=== PATIENT | male | born 1985 | race Caucasian/White ===

== ENCOUNTER 2017-04-02 06:15 | Observation (INO) | payer OTHER ==
[2017-03-25 15:39] VITALS: BMI 29.8
[~2017-04-02 06:15] MED LIST: AMPICILLIN 1,000 MG in SODIUM CHLORIDE 0.9% 50 ML IVPB ONE; GENTAMICIN 160 MG in SODIUM CHLORIDE 0.9% 100 ML IVPB ONE; ONDANSETRON 4 MG/2 ML VIAL IVP PRN
[2017-04-02] MEDS: LACTATED RINGERS 1,000 ML IV SCH ×2 (06:49→21:31)
[2017-04-02] MEDS ORDERED: LIDOCAINE 1% 20 ML VIAL (10MG/ML) FOR IV START INTRADERMA ONE (06:50)
[2017-04-02] MEDS ORDERED: HYDROmorphone (PF) 1 MG/ML ONE (07:23)
[2017-04-02] MEDS ORDERED: PROPOFOL 10 MG/ML 20 ML VIAL IV ONE (07:23)
[2017-04-02] MEDS ORDERED: KETOROLAC 30 MG/ML 1 ML VIAL ONE (07:23)
[2017-04-02] MEDS ORDERED: ROCURONIUM BROMIDE 10 MG/ML 10 ML VIAL IV ONE (07:23)
[2017-04-02] MEDS ORDERED: MIDAZOLAM 2 MG/2 ML VIAL ONE (07:23)
[2017-04-02] MEDS ORDERED: SUCCINYLCHOLINE CHLORIDE 100 MG/5 ML SYR IV ONE (07:23)
[2017-04-02] MEDS ORDERED: fentaNYL (PF) 50 MCG/ML 2 ML AMP ONE (07:23)
[2017-04-02] MEDS ORDERED: LIDOCAINE 1% INJ 10MG/ML (20 ML MDV) ONE (07:23)
--- NOTE | 2017-04-02 07:44 | XR ---
Abdomen HISTORY: Kidney stones Frontal view of the abdomen submitted on [address] scan from outside institution 01/28/2017. Calcification of the upper pole the right kidney measures approximately 11 mm, lower pole calcificati on measures approximately 8 mm, scattered subcentimeter calcifications also present at the lower pole on the right, approximately 6 or 7 calcifications suspected. Ventriculoperitoneal shunt tubing is pr esent in the left abdomen. Lung bases are not included on the exam. There is no evident bowel obstruc tion or pneumoperitoneum. Probable vascular calcifications within the pelvis. IMPRESSION: Right nephrolithiasis.
[2017-04-02] MEDS ORDERED: IOHEXOL 350 MG/ML 50ML BOTTLE MISCELLANE ONE (07:57)
[2017-04-02] MEDS ORDERED: LACTATED RINGERS 1,000 ML IV ONE ×2 (09:21)
[2017-04-02] MEDS ORDERED: MAG HYDROX/AL HYDROX/SIMETH 30 ML CUP PO PRN (10:01)
[2017-04-02] MEDS ORDERED: ONDANSETRON 4 MG/2 ML VIAL IVP PRN (10:01)
[2017-04-02] MEDS ORDERED: ACETAMINOPHEN TAB 325 MG TAB PO PRN (10:01)
[2017-04-02] MEDS ORDERED: NALOXONE 0.4 MG/ML 1 ML VIAL IV PRN (10:02)
[2017-04-02] MEDS ORDERED: HYDROmorphone PCA 5 MG/25 ML SYRINGE IV PRN (10:02)
--- NOTE | 2017-04-02 10:10 | P.OP ---
Date of Procedure: 04/02/17 Preoperative Diagnosis: Right renal calculi, right UPJ obstruction Postoperative Diagnosis: Same Procedure(s) Performed: Cystoscopy, placement of right 5-[place] occluding balloon ureteral catheter, percutaneous nephrostomy (Dr. Lagunas) percutaneous nephrostolithotomy, percutaneous endopyelotomy, placement of 7 x 28 antegrade double-J catheter, placement of 10-[place] J nephrostomy tube Anesthesia: GETA Surgeon: Carlos Olivas Estimated Blood Loss (ml): 50 Pathology: other (Stone) Condition: stable Disposition: PACU Indications for Procedure: The patient is a 31-year-old gentleman with recurrent right flank pain. He has a UPJ obstruction as well as several smaller stones in the right kidney. He comes for a percutaneous nephrostolithotomy and a percutaneous endopyelotomy on the right side. Operative Findings: UPJ obstruction right, 1 cm and 3 to 4, 4-5 mm stones Description of Procedure: The patient is brought to the operating suite and given a successful general endotracheal anesthesia on the transport gurney. He's placed in a frog position with a sterile prep and drape. Cystoscopy with a Foroblique lens and 22-[place] sheath identifies a normal urethra. The prostate is not obstructing. The right ureteral orifice is intubated with a 5-[place] occluding balloon catheter and it is passed up into the UPJ. The patient is placed in a prone position with care to airways and extremities. Dr. Lagunas of radiology performed percutaneous access to the right lower pole calyx as the upper pole calyces are near the pleura. We then dilate the tract to 30-[place]. We introduced the rigid scope into the collecting system and remove clot. The larger stone is seen and grasp and removed. I then remove several smaller stones. I look through the collecting system and basket some small stones. I then through the ureteral catheter pass an 0.25 wire up into the collecting system. The wires grasped and pulled out through the working sheath. Over the wire with some difficulty I began to dilate the UPJ with a 6- [place] open-ended catheter. Over the open-ended catheter I then pass a 6-18- [place] dilating balloon and dilated the tract 18-[place]. I then pass the direct vision urethrotome and in an anterior lateral aspect I cut the stricture over 20-[place]. I then pass the open-ended catheter over the wire and exchanged the 025 wire for an 035 wire and passed down into the bladder. Over the 035 wire pass a 7-28 double-J catheter that coils in the bladder in the renal pelvis. Its positioned confirmed endoscopically and with fluoroscopy . I then place a 10-[place] J nephrostomy tube. Its position is confirmed under fluoroscopy. I tied this to the skin. The patient's awakened and sent to recovery in good condition. Blood loss is approximately 50 mL. Patient will stay in the hospital postoperatively.
[2017-04-02] MEDS: HYDROmorphone 1 MG/ML 1 ML SYRINGE IVP PRN ×4 (10:50→17:56)
--- NOTE | 2017-04-02 11:17 | FL ---
EXAMINATION TYPE: FL Perc Nephrostomy New Access DATE OF EXAM: 04/02/2017 COMPARISON: NONE HISTORY: Ureteropelvic junction obstruction, right-sided renal calculus. PROCEDURE: Maximal barrier technique was utilized. The skin overlying the right kidney was localized using fluo roscopy and the overlying skin prepped and draped. Lidocaine used for local anesthesia. Skin jared w as made with a scalpel. Access was gained under fluoroscopy, following placement of a ureteral occlu tee balloon by the referring clinician and instillation of air in the renal collecting system with a 22-gauge needle to the kidney. A suitable posterior calyx was chosen. A 0.018 inch wire was [id number] flaregames. The access site was dilated and subsequently a sheath was advanced into the renal pelvis follow ing dilation with balloon along the tract. Following advancement of the sheath was noted that access was not obtained into the kidney. Sheath was removed and subsequently reinserted over the safety wire . Wire was passed via the ureteral occlusion balloon and snared within the renal collecting system an d delivered and fixed to the patient. Urine returned in the hub of the catheter. The patient underwen t nephrolithotomy by the referring clinician as well as procedure at the ureteropelvic junction. Th e patient remained in stable condition without complication. The patient was discharged to [facility] on. IMPRESSION: STATUS POST NEPHROSTOMY PLACEMENT FOR NEPHROLITHOTOMY WITH FLUOROSCOPIC GUIDANCE. THIS PROCEDURE PER FORMED BY THE UNDERSIGNED.
[2017-04-02] MEDS: DEXTROSE 5%-0.45% NACL 1,000 ML IV SCH ×2 (11:49→21:40)
[2017-04-02] MEDS: KETOROLAC 30 MG/ML 1 ML VIAL IVP PRN (12:35)
[2017-04-03] MEDS: KETOROLAC 30 MG/ML 1 ML VIAL IVP PRN ×2 (01:56→07:57)
[2017-04-03] MEDS: DEXTROSE 5%-0.45% NACL 1,000 ML IV SCH (06:38)
[2017-04-03 08:15] VITALS: BP 123/79; PULSE 60; RESP 16; TEMP 98.2
--- NOTE | 2017-04-03 12:12 | P.DS ---
Providers Date of admission: 04/03/17 03:39 Attending physician: Carlos Olivas Primary care physician: Stated None Hospital Course: the patient was dmitted 04/02/2017 for a right percutaneous nephrostolithotomy and a right percutaneous endopyelotomy. He underwent this. He was kept in the hospital overnight. His pain was controlled. The catheters removed his voided well. The urine from the nephrostomy tube is clearing. He is feeling well. We discharged home. A follow-up in the office next Friday for nephrostomy tube removal. The stent will remain in place for about 4 weeks. He'll be given as prescription of [place]. Patient Condition at Discharge: Good Plan - Discharge Summary Discharge Rx Participant: Yes New Discharge Prescriptions: New HYDROcodone/APAP 5-325MG [[place] 5-325] 1 tab PO Q4HR PRN #20 tab PRN Reason: Pain Control HYDROcodone/APAP 5-325MG [[place] 5-325] 1 tab PO Q4HR PRN #20 tab PRN Reason: Pain Control Discharge Medication List HYDROcodone/APAP 5-325MG [[place] 5-325] 1 tab PO Q4HR PRN #20 tab 04/02/17 [Rx] HYDROcodone/APAP 5-325MG [[place] 5-325] 1 tab PO Q4HR PRN #20 tab 04/03/17 [Rx] Follow up Appointment(s)/Referral(s): Carlos Olivas MD [STAFF PHYSICIAN] - 04/08/17 Activity/Diet/Wound Care/Special Instructions: discharge home with n tube May shower if he covers the tube or changes the dressing office to see me apr 08 Discharge Disposition: HOME SELF-CARE
== END 2017-04-03 12:28 | disposition home or self-care (01) ==
LOC: OR 06:15 → 4MS4W 10:04 → OR 04-03 03:39 → 4MS4W 04-03 03:39
PROVIDERS: ADMIT Urology; ATTEND Urology
DX: N20.0 Calculus of kidney (principal); N13.5 Crossing vessel and stricture of ureter without hydronephrosis; Z86.011 Personal history of benign neoplasm of the brain; F17.200 Nicotine dependence, unspecified, uncomplicated; Q62.11 Congenital occlusion of ureteropelvic junction
CPT/HCPCS: 50080; 94760; 86900; 86901; 86850; 82365; 74000; 50432; G0378; C2625; C1769 ×6; C2628; C1729 ×2; C1758; C1894; J2250; J2405; J2001; J3010; J1885 ×2; J1580; J1170; J0330; J2704; Q9967

== ENCOUNTER 2017-05-09 14:22 | Emergency (ER) | payer OTHER ==
[2017-05-09 14:29] VITALS: TEMP 97.1
[2017-05-09] MEDS ORDERED: HYDROmorphone 4 MG/ML 1 ML SYRINGE IVP STA ×2 (15:01→16:53)
[2017-05-09] MEDS ORDERED: ONDANSETRON 4 MG/2 ML VIAL IVP STA ×2 (15:01→16:59)
[2017-05-09] MEDS ORDERED: SODIUM CHLORIDE 0.9% 1,000 ML IV STA ×2 (15:01)
[2017-05-09] MEDS ORDERED: SODIUM CHLORIDE 0.9% 500 ML IV STA ×2 (15:01→16:34)
[2017-05-09 15:18] LABS: HCT 44.9 % (39.0-53.0); HGB 15.1 gm/dL (13.0-17.5); MCH 29.3 pg (25.0-35.0); MCHC 33.7 g/dL (31.0-37.0); MCV 86.9 fL (80.0-100.0); Platelet Count 275 k/uL (150-450); RBC 5.16 m/uL (4.30-5.90); RDW 12.8 % (11.5-15.5); WBC 9.1 k/uL (3.8-10.6)
[2017-05-09 15:28] LABS: ALT 48 U/L (21-72); AST 33 U/L (17-59); Albumin 4.4 g/dL (3.5-5.0); Alkaline Phosphatase 65 U/L (38-126); Anion Gap 12 mmol/L; Blood Urea Nitrogen 15 mg/dL (9-20); Calcium 9.7 mg/dL (8.4-10.2); Carbon Dioxide 23 mmol/L (22-30); Chloride 106 mmol/L (98-107); Glucose 92 mg/dL (74-99); Magnesium 1.8 mg/dL (1.6-2.3); Potassium 3.9 mmol/L (3.5-5.1); Sodium 141 mmol/L (137-145); Total Bilirubin 0.7 mg/dL (0.2-1.3)
[2017-05-09 15:29] LABS: INR 1.1 (<1.2); Partial Thromboplastin Time 25.9 sec (22.0-30.0); Prothrombin Time 10.3 sec (9.0-12.0)
--- NOTE | 2017-05-09 15:38 | ED ---
General Adult HPI - General Chief complaint: Urogenital Stated complaint: Groin Pain Time Seen by Provider: 05/09/17 14:32 Source: EMS, RN notes reviewed, old records reviewed Mode of arrival: EMS Limitations: no limitations - History of Present Illness Initial comments: This is a 29-year-old male the ER for evaluation. Patient is a for evaluation regards to find pain severe flank pain blood in his urine. Patient recent ureteral stent removed by Dr. Correia. This was done outpatient. Patient is had increasing pain since. No other complaints no nausea no vomiting. No fevers - Related Data Previous Rx's Medication Instructions Recorded Ciprofloxacin HCl [Cipro] 500 mg PO BID 3 Days #6 tab 05/09/17 HYDROcodone/APAP 5-325MG [[place] 1 tab PO Q6HR PRN #20 tab 05/09/17 5-325] Naproxen [Naprosyn] 500 mg PO Q12HR #30 tab 05/09/17 Ondansetron Odt [Zofran Odt] 4 mg PO Q8HR PRN #30 tab 05/09/17 Allergies Allergy/AdvReac Type Severity Reaction Status Date / Time No Known Allergies Allergy Verified 05/09/17 14:48 Review of Systems ROS Statement: Those systems with pertinent positive or pertinent negative responses have been documented in the HPI. ROS Other: All systems not noted in ROS Statement are negative. 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 Past Anesthesia/Blood Transfusion Reactions: No Reported Reaction Additional Past Anesthesia/Blood Transfusion Reaction / Comment(s): no hx blood transfusion Past Psychological History: No Psychological Hx Reported Smoking Status: Current every day smoker Past Alcohol Use History: None Reported Past Drug Use History: Marijuana - Past Family History Mother Family Medical History: No Reported History General Exam Limitations: no limitations General appearance: alert, in no apparent distress Head exam: Present: atraumatic, normocephalic, normal inspection Eye exam: Present: normal appearance, PERRL, EOMI. Absent: scleral icterus, conjunctival injection, periorbital swelling ENT exam: Present: normal exam, mucous membranes moist Neck exam: Present: normal inspection. Absent: tenderness, meningismus, lymphadenopathy Respiratory exam: Present: normal lung sounds bilaterally. Absent: respiratory distress, wheezes, rales, rhonchi, stridor Cardiovascular Exam: Present: regular rate, normal rhythm, normal heart sounds. Absent: systolic murmur, diastolic murmur, rubs, gallop, clicks GI/Abdominal exam: Present: soft, normal bowel sounds. Absent: distended, tenderness, guarding, rebound, rigid Extremities exam: Present: normal inspection, full ROM, normal capillary refill. Absent: tenderness, pedal edema, joint swelling, calf tenderness Back exam: Present: normal inspection Neurological exam: Present: alert, oriented X3, CN II-XII intact Psychiatric exam: Present: normal affect, normal mood Skin exam: Present: warm, dry, intact, normal color. Absent: rash Course Vital Signs 05/09/17 05/09/17 14:27 18:29 Temperature 97.1 F L Pulse Rate 71 82 Respiratory 18 16 Rate Blood Pressure 130/87 122/75 O2 Sat by Pulse 100 95 Oximetry - Reevaluation(s) Reevaluation #1: Spoke with Dr. Correia, patient follow-up as directed EKG Findings - EKG Comments: EKG Findings:: KG shows normal sinus rhythm rate of 64, GA 162, QRS 96, QTc 429 Medical Decision Making - Medical Decision Making 31 male the ER for evaluation of flank pain, patient does have follow-up with urology, pain is well-controlled at this time patient can be discharged home - Lab Data Result diagrams: 05/09/17 14:40 05/09/17 14:40 Lab Results 05/09/17 05/09/17 05/09/17 Range/Units 14:40 14:40 14:40 WBC 9.1 (3.8-10.6) k/uL RBC 5.16 (4.30-5.90) m/uL Hgb 15.1 (13.0-17.5) gm/dL Hct 44.9 (39.0-53.0) % MCV 86.9 (80.0-100.0) fL MCH 29.3 (25.0-35.0) pg MCHC 33.7 (31.0-37.0) g/dL RDW 12.8 (11.5-15.5) % Plt Count 275 (150-450) k/uL Neutrophils % (Manual) 68 % Lymphocytes % (Manual) 20 % Monocytes % (Manual) 11 % Eosinophils % (Manual) 1 % Neutrophils # (Manual) 6.19 (1.3-7.7) k/uL Lymphocytes # (Manual) 1.82 (1.0-4.8) k/uL Monocytes # (Manual) 1.00 (0-1.0) k/uL Eosinophils # (Manual) 0.09 (0-0.7) k/uL Nucleated RBCs 0 (0-0) /100 WBC Manual Slide Review Performed RBC Morphology Normal PT 10.3 (9.0-12.0) sec INR 1.1 (<1.2) APTT 25.9 (22.0-30.0) sec Sodium 141 (137-145) mmol/L Potassium 3.9 (3.5-5.1) mmol/L Chloride 106 (98-107) mmol/L Carbon Dioxide 23 (22-30) mmol/L Anion Gap 12 mmol/L BUN 15 (9-20) mg/dL Creatinine 0.91 (0.66-1.25) mg/dL Est GFR (MDRD) Af Amer >60 (>60 ml/min/1.73 sqM) Est GFR (MDRD) Non-Af >60 (>60 ml/min/1.73 sqM) Glucose 92 (74-99) mg/dL Calcium 9.7 (8.4-10.2) mg/dL Phosphorus 2.0 L (2.5-4.5) mg/dL Magnesium 1.8 (1.6-2.3) mg/dL Total Bilirubin 0.7 (0.2-1.3) mg/dL AST 33 (17-59) U/L ALT 48 (21-72) U/L Alkaline Phosphatase 65 (38-126) U/L Total Protein 7.0 (6.3-8.2) g/dL Albumin 4.4 (3.5-5.0) g/dL Urine Color Urine Appearance (Clear) Urine pH (5.0-8.0) Ur Specific [place] (1.001-1.035) Urine Protein (Negative) Urine Glucose (UA) (Negative) Urine Ketones (Negative) Urine Blood (Negative) Urine Nitrite (Negative) Urine Bilirubin (Negative) Urine Urobilinogen (<2.0) mg/dL Ur Leukocyte Esterase (Negative) Urine RBC (0-5) /hpf Urine WBC (0-5) /hpf Ur Squamous Epith Cells (0-4) /hpf Calcium Oxalate Crystal (None) /hpf Urine Bacteria (None) /hpf Hyaline Casts (0-2) /lpf Urine Mucus (None) /hpf 05/09/17 Range/Units 18:00 WBC (3.8-10.6) k/uL RBC (4.30-5.90) m/uL Hgb (13.0-17.5) gm/dL Hct (39.0-53.0) % MCV (80.0-100.0) fL MCH (25.0-35.0) pg MCHC (31.0-37.0) g/dL RDW (11.5-15.5) % Plt Count (150-450) k/uL Neutrophils % (Manual) % Lymphocytes % (Manual) % Monocytes % (Manual) % Eosinophils % (Manual) % Neutrophils # (Manual) (1.3-7.7) k/uL Lymphocytes # (Manual) (1.0-4.8) k/uL Monocytes # (Manual) (0-1.0) k/uL Eosinophils # (Manual) (0-0.7) k/uL Nucleated RBCs (0-0) /100 WBC Manual Slide Review RBC Morphology PT (9.0-12.0) sec INR (<1.2) APTT (22.0-30.0) sec Sodium (137-145) mmol/L Potassium (3.5-5.1) mmol/L Chloride (98-107) mmol/L Carbon Dioxide (22-30) mmol/L Anion Gap mmol/L BUN (9-20) mg/dL Creatinine (0.66-1.25) mg/dL Est GFR (MDRD) Af Amer (>60 ml/min/1.73 sqM) Est GFR (MDRD) Non-Af (>60 ml/min/1.73 sqM) Glucose (74-99) mg/dL Calcium (8.4-10.2) mg/dL Phosphorus (2.5-4.5) mg/dL Magnesium (1.6-2.3) mg/dL Total Bilirubin (0.2-1.3) mg/dL AST (17-59) U/L ALT (21-72) U/L Alkaline Phosphatase (38-126) U/L Total Protein (6.3-8.2) g/dL Albumin (3.5-5.0) g/dL Urine Color Yellow Urine Appearance Cloudy (Clear) Urine pH 6.5 (5.0-8.0) Ur Specific [place] 1.019 (1.001-1.035) Urine Protein 2+ H (Negative) Urine Glucose (UA) Negative (Negative) Urine Ketones 2+ H (Negative) Urine Blood Large H (Negative) Urine Nitrite Negative (Negative) Urine Bilirubin Negative (Negative) Urine Urobilinogen <2.0 (<2.0) mg/dL Ur Leukocyte Esterase Small H (Negative) Urine RBC >182 H (0-5) /hpf Urine WBC 49 H (0-5) /hpf Ur Squamous Epith Cells <1 (0-4) /hpf Calcium Oxalate Crystal Occasional H (None) /hpf Urine Bacteria Rare H (None) /hpf Hyaline Casts 1 (0-2) /lpf Urine Mucus Few H (None) /hpf - Radiology Data Radiology results: report reviewed (X-ray ultrasound renal and bladder is positive for hydronephrosis), image reviewed Disposition Clinical Impression: Postoperative pain Disposition: HOME SELF-CARE Condition: Good Instructions: Hydronephrosis (ED) Prescriptions: Ciprofloxacin HCl [Cipro] 500 mg PO BID 3 Days #6 tab HYDROcodone/APAP 5-325MG [[place] 5-325] 1 tab PO Q6HR PRN #20 tab PRN Reason: Pain Naproxen [Naprosyn] 500 mg PO Q12HR #30 tab Ondansetron Odt [Zofran Odt] 4 mg PO Q8HR PRN #30 tab PRN Reason: Nausea And Vomiting Referrals: Zora Mccollum MD [Primary Care Provider] - 1-2 days
--- NOTE | 2017-05-09 15:40 | XR ---
EXAMINATION TYPE: XR KUB DATE OF EXAM: 05/09/2017 3:33 PM CLINICAL HISTORY: Testicular pain after having stent removed from the right ureter today. TECHNIQUE: Single supine KUB image of the abdomen is obtained. COMPARISON: 04/02/2017. FINDINGS: The previously seen multiple right renal calculi are no longer visualized, possibly partial ly due to overlying bowel gas/stool or passage. Scattered gas is seen in non-distended small bowel lo ops. Gas and fecal material is seen in non-distended colon. The lung bases are clear and the osseous structures are intact. Central catheter courses along the visualized portions of the inferior thorax and extends into the left para midline, unchanged from the exam of 04/02/2017. IMPRESSION: 1. Nonobstructive bowel gas pattern. 2. The previously seen multiple right renal calculi are no longer visualized. This may be secondary t o overlying fecal material or interval passage.
[2017-05-09 15:56] LABS: Eosinophils # (M) 0.09 k/uL (0-0.7); Lymphocytes # (M) 1.82 k/uL (1.0-4.8); Neutrophils # (M) 6.19 k/uL (1.3-7.7); Neutrophils % (M) 68 %; Nucleated Red Blood Cells 0 /100 WBC (0-0); Total Cells Counted 100
[2017-05-09] MEDS ORDERED: HYDROmorphone 0.5 MG/0.5 ML SYRINGE IVP STA (16:34)
[2017-05-09] MEDS ORDERED: KETOROLAC 30 MG/ML 1 ML VIAL IVP STA (16:36)
--- NOTE | 2017-05-09 16:40 | US ---
EXAMINATION TYPE: US kidneys/renal and bladder DATE OF EXAM: 05/09/2017 COMPARISON: NONE CLINICAL HISTORY: Pain. Patient had NEPHROSTOMY tube pulled out today. Pain EXAM MEASUREMENTS: Right Kidney: 11.2 x 6.8 x 7.4 cm Left Kidney: 12.4 x 6.7 x 5.6 cm Right Kidney: Severe hydronephrosis visualized. Possible fluid visualized adjacent to the right kidne y. Hyperechoic area visualized mid pole measuring 0.7 x 0.4 x 0.7 cm Left Kidney: No hydronephrosis or masses seen Bladder: wnl Bilateral Jets seen: Yes IMPRESSION: 1. Severe right hydronephrosis. Small amount fluid may be adjacent to the kidney. 2. Small hyperechoic lesion within the cortex of the mid right kidney.
[2017-05-09] MEDS ORDERED: ACETAMINOPHEN IV (For NPO) 1,000 MG in EMPTY BAG 1 BAG IVPB STA (17:21)
[2017-05-09] MEDS ORDERED: DIAZEPAM 5 MG/ML 2 ML INJ IVP STA (17:21)
[2017-05-09] MEDS ORDERED: MORPHINE SULFATE 2 MG/ML SYRINGE IVP ONE (17:21)
[2017-05-09] MEDS ORDERED: cefTRIAXone IN SWFI 2,000 MG/20 ML SYRINGE IVP STA (17:21)
[2017-05-09 18:23] LABS: Appearance,Urine Cloudy (Clear); Bacteria,Urine Rare /hpf; Bilirubin,Urine Negative (Negative); Blood,Urine Large (Negative); Calcium Oxalate Crystals,Urine Occasional /hpf; Color,Urine Yellow; Glucose,Urine (UA) Negative (Negative); Hyaline Casts,Urine 1 /lpf (0-2); Ketones,Urine 2+ (Negative); Leukocyte Esterase,Urine Small (Negative); Mucus,Urine Few /hpf; Nitrite,Urine Negative (Negative); PH, Urine 6.5 (5.0-8.0); Protein,Urine 2+ (Negative); RBC,Urine >182 /hpf (0-5); Specific Gravity,Urine 1.019 (1.001-1.035); Squamous Epithelial Cell,Urine <1 /hpf (0-4); Urobilinogen,Urine <2.0 mg/dL (<2.0); WBC,Urine 49 /hpf (0-5)
[2017-05-09 18:30] VITALS: BP 122/75; PULSE 82; RESP 16
== END 2017-05-09 18:33 | disposition home or self-care (01) ==
LOC: EC 14:22
DX: G89.18 Other acute postprocedural pain (principal); R10.30 Lower abdominal pain, unspecified; N13.30 Unspecified hydronephrosis; F17.200 Nicotine dependence, unspecified, uncomplicated
CPT/HCPCS: 99285; 96374; 96375 ×6; 96376 ×2; 96361 ×3; 51798; 36415; 93005; 80053; 83735; 84100; 85025; 85610; 85730; 81001; 87086; 74018; 76770; J3360; J2405; J0696; J1885; J2270; J0131; J1170